=== PATIENT | female | born 1980 | race Caucasian/White ===

== ENCOUNTER 2017-04-13 09:55 | Emergency (ER) | payer OTHER ==
[~2017-04-13] VITALS: Ht 160 cm; Wt 88.0 kg
[~2017-04-13 09:55] MED LIST: OLAN7.5T PO
[2017-04-13 10:01] VITALS: BP 136/80; PULSE 97; RESP 15; O2SAT 95
--- NOTE | 2017-04-13 10:25 | PD ---
HPI Chief Complaint: Back/ Neck Pain or Injury Time Seen by Provider: 10:11 Travel History International Travel<30 days: No Contact w/Intl Traveler<30days: No Traveled to known affect area: No History of Present Illness HPI 36-year-old female complains of low back pain. Patient states that the pain started 2 days ago. Patient denies any injury. Patient said the pain aching pain localized to low back. Patient denies any pain radiation. Patient denies any fever chills. Patient denies abdominal pain. Patient denies any dysuria or frequency. Patient denies any vaginal discharge or bleeding. Patient denies any weakness or numbness of extremity. Patient denies any numbness in the groin area. Patient denies any history of back injury. PFSH Past Medical History Insomnia: Yes Influenza Vaccination: Yes ?: Not LMP: 03/27/17 Past Surgical History Surgical History: No Previous Surgery Social History Alcohol Use: No Tobacco Use: No Substance Use: No Allergies-Medications (Allergen,Severity, Reaction): Coded Allergies: No Known Allergies (Unverified Adverse Reaction, Unknown, 04/13/17) Reported Meds & Prescriptions Reported Meds & Active Scripts Active Reported Olanzapine 7.5 Mg Tab 7.5 Mg PO HS Review of Systems General / Constitutional: No: Fever Eyes: No: Visual changes HENT: No: Headaches Cardiovascular: No: Chest Pain or Discomfort Respiratory: No: Shortness of Breath Gastrointestinal: No: Abdominal Pain Genitourinary: No: Dysuria Musculoskeletal: No: Pain Skin: No Rash Neurologic: No: Weakness Psychiatric: No: Depression Endocrine: No: Polydipsia Hematologic/Lymphatic: No: Easy Bruising Physical Exam Narrative GENERAL: Well-nourished, well-developed patient. SKIN: Focused skin assessment warm/dry. HEAD: Normocephalic. EYES: No scleral icterus. No injection or drainage. NECK: Supple, trachea midline. No JVD or lymphadenopathy. CARDIOVASCULAR: Regular rate and rhythm without murmurs, gallops, or rubs. RESPIRATORY: Breath sounds equal bilaterally. No accessory muscle use. GASTROINTESTINAL: Abdomen soft, non-tender, nondistended. MUSCULOSKELETAL: No cyanosis, or edema. BACK: Patient has moderate tenderness on palpation lumbar area, without obvious deformity. No CVA tenderness. Negative straight leg raising. Neurologic exam normal. Data Data Last Documented VS Vital Signs Date Time Temp Pulse Resp B/P (MAP) Pulse Ox O2 Delivery O2 Flow Rate FiO2 04/13/17 10:01 97 15 136/80 (98) 95 Orders Orders Urinalysis - C+S If Indicated (04/13/17 10:15) Spine, Lumbar - Ltd (Ap & Lat) (04/13/17 10:15) Labs Laboratory Tests Test 04/13/17 10:39 Urine Color YELLOW Urine Turbidity HAZY Urine pH 6.0 Urine Specific [place] 1.022 Urine Protein NEG mg/dL Urine Glucose (UA) NEG mg/dL Urine Ketones NEG mg/dL Urine Occult Blood NEG Urine Nitrite NEG Urine Bilirubin NEG Urine Urobilinogen LESS THAN 2.0 MG/DL Urine Leukocyte Esterase NEG Urine RBC 1 /hpf Urine WBC LESS THAN 1 /hpf Urine Squamous Epithelial Cells 3 /hpf Urine Bacteria OCC /hpf Urine Mucus FEW /lpf Microscopic Urinalysis Comment CULT NOT INDICATED MDM Medical Decision Making Medical Screen Exam Complete: Yes Emergency Medical Condition: Yes Interpretation(s) 12:15 PM. X-ray lumbar spine shows no acute pathology. UA is negative. Differential Diagnosis Differential diagnosis including lumbar strain, fracture, HNP. Narrative Course 36-year-old female with new onset low back pain. Diagnosis Primary Impression: Lumbar strain Qualified Codes: S39.012A - Strain of muscle, fascia and tendon of lower back , initial encounter Patient Instructions: General Instructions Additional Instructions: Take medication as needed for pain. Moist heat. Follow-up with personal physician. Return if persistent problem or worse. Med/Other Pt SpecificInfo: Prescription(s) given Scripts Methocarbamol (Robaxin) 750 Mg Tab 750 MG PO QID for Muscle Spasm, #40 TAB 0 Refills Prov: Angelo Serrano MD 04/13/17 Meloxicam (Mobic) 15 Mg Tab 15 MG PO DAILY for Pain, #20 TAB 0 Refills Prov: Angelo Serrano MD 04/13/17 Disposition: 01 DISCHARGE HOME Condition: Stable Angelo Serrano MD Apr 13, 2017 10:25
--- NOTE | 2017-04-13 10:51 | RADRPT ---
EXAM DATE/TIME: 04/13/2017 10:39 [facility] COMPARISON: No previous studies available for comparison. INDICATIONS : Lower back became painful 5 days ago and pain has become more severe, denies trauma , no previous faith k problems MEDICAL HISTORY : None. SURGICAL HISTORY : None. ENCOUNTER: Initial ACUITY: 4 - 6 days PAIN SCORE: 10/10 LOCATION: Bilateral lumbar FINDINGS: Two view examination was performed. There are five non-rib bearing vertebral bodies. The vertebral bodies are in normal alignment without evidence of subluxation or scoliosis. The disc spaces are carin ntained. The pedicles are intact. Bony mineralization is normal. No fracture is identified. Hypopl astic ribs at T12. There is good alignment of the SI joints. CONCLUSION: Normal examination for a patient of this age. Tio Rivera MD on April 13, 2017 at 10:49 Board Certified Radiologist. This report was verified electronically.
[2017-04-13 11:35] LABS: BACTERIA, URINE OCC /hpf; BLOOD, URINE NEG (NEG); COMMENT (UR) CULT NOT INDICATED; CULTURE IF INDICATED CULT NOT INDICATED; GLUCOSE,URINE NEG (NEG); KETONE, URINE NEG (NEG); MUCUS URINE FEW /lpf (OCC); NITRITE,URINE NEG (NEG); SQUAMOUS EPITHELIAL CELL URINE 3 /hpf (0-5); URINE COLOR YELLOW (YELLW/STRAW)
[2017-04-13] MEDS ORDERED: ROBA750T PO (12:19)
[2017-04-13] MEDS ORDERED: MOBI15TA PO (12:19)
== END 2017-04-13 12:44 | disposition home or self-care (01) ==
LOC: NEPD 09:55
DX: S39.012A Strain of muscle, fascia and tendon of lower back, initial encounter (principal); X58.XXXA Exposure to other specified factors, initial encounter
CPT/HCPCS: 72100; 81001; 99284